=== PATIENT | female | born 1970 | race Caucasian/White ===

== ENCOUNTER 2017-01-18 16:49 | Emergency (ER) | payer SELFPAY ==
--- NOTE | 2017-01-18 17:33 | ED Physician Documentation ---
Upper Respiratory Symptoms - HISTORIAN Historian: patient - HPI Stated Complaint: Fever/Chills/Decrease Appetite Chief Complaint: Cough/ Upper Respiratory Additional Information: ears hurt but not as bad as prev ear infections, fever fatigue, little dysuria. no appetite. Onset: days ago Duration: constant Context: denies: recent foreign travel, insect bite(s), tick(s), recent chemotherapy, multiple patients Severity: mild Associated Symptoms: fever, chills, earache Worsened by Deep Breath: No Further Comments: no - ROS CONST/EYES: denies: weakness, eye redness, eye itching CVS/RESP: none LYMPH: denies: leg swelling GI/: problems urinating (hurts a little) NEURO/PSYCH: denies: fainting MS/SKIN: muscle aches - PAST HX Lung Disease: denies: pneumonia PE Risk Factors: hypertension Other History: CHF, diabetes Type 2, hypertension Immunizations: UTD Allergies/Adverse Reactions: Allergies Allergy/AdvReac Type Severity Reaction Status Date / Time No Known Allergies Allergy Verified 05/28/15 13:29 Home Medications: Ambulatory Orders Medication Instructions Recorded Furosemide [Furosemide] 1 tab PO DAILY 11/30/13 Lisinopril/Hctz 20-12.5 1 tab PO DAILY 11/30/13 [Zestoretic 20-12.5] Pravastatin Sodium [Pravastatin 1 tab PO DAILY 11/30/13 Sodium] Metformin HCl ER [Glucophage XR] 1,000 mg PO BID 03/21/14 Glimepiride [Amaryl] 4 mg PO DAILY 01/18/17 - SOCIAL HX Smoking History: non-smoker Alcohol Use: none Drug Use: none - FAMILY HX Family History: none - VITAL SIGNS Vital Signs: Vital Signs Temp Pulse Resp BP Pulse Ox 99.4 F 88 18 115/70 95 01/18/17 16:50 01/18/17 17:39 01/18/17 17:39 01/18/17 17:39 01/18/17 17:39 - REVIEWED ASSESSMENTS Nursing Assessment Reviewed: Yes Vitals Reviewed: Yes ED Results Lab/Radiology - Lab Results Lab Results: Lab Results 01/18/17 17:40 Urine Color Yellow (YELLOW) Urine Appearance Cloudy (CLEAR) Urine pH 5.0 (5.0 - 8.0) Ur Specific Crawford 1.025 (1.010-1.030) Urine Protein 3+ mg/dL H mg/dL (NEGATIVE) Urine Ketones Negative mg/dL mg/dL (NEGATIVE) Urine Occult Blood 2+ H (NEGATIVE) Urine Nitrite Negative (NEGATIVE) Urine Bilirubin 1+ H (NEGATIVE) Urine Urobilinogen 0.2 Eu Eu (0.2-1.0) Ur Leukocyte Esterase 3+ H (NEGATIVE) Urine RBC 0-2 (0-2 HPF) Urine WBC 50-99 H (0-5 HPF) Urine WBC Clumps Present H (NEGATIVE) Ur Squamous Epith Cells Few (NEG-FEW) Urine Bacteria Many H (NEGATIVE) Urine Glucose Negative mg/dL mg/dL (NEGATIVE) - Orders Orders: ED Orders Category Date Time Status UA W MICRO [UA W/MICRO IF INDICATED] Routine Lab 01/18/17 17:40 Completed URINE CULTURE Routine Lab 01/18/17 17:40 Received Upper Respiratory Symptoms - EXAM General Appearance: no acute distress, alert EENT: eyes nml inspection, nml ENT inspection, ear nml, nose nml, pharynx nml Neck: normal inspection, supple. No: lymphadenopathy, carotid bruit Respiratory: no resp. distress, breath sounds nml, no pain on inspiration, speaks full sentences. No: wheezes, rales, rhonchi Abdomen: non-tender CVS: reg rate & rhythm, heart sounds normal, equal pulses Skin: color nml, no rash, warm,dry Extremities: non-tender Neuro/Psych: oriented x3, neuro intact, mood/affect nml Discharge Clincal Impression: UTI (urinary tract infection) Qualifiers: Urinary tract infection type: acute cystitis Hematuria presence: without hematuria Qualified Code(s): N30.00 - Acute cystitis without hematuria Clincal Impression: (Ruled Out): UTI (urinary tract infection) due to Enterococcus Referrals: Ingris Bernal, CLINICAL TRIAL DATA MANAGER [Primary Care Provider] - 2 Days Condition: Stable Disposition: 01 HOME, SELF-CARE Decision to Admit: NO Date of Decison to Admit: 01/18/17 Decision Time: 18:16
[2017-01-18 17:45] LABS: APPEARANCE,URINE Cloudy (CLEAR); COLOR,URINE Yellow (YELLOW); OCCULT BLOOD,URINE 2+ (NEGATIVE); UROBILINOGEN URINE 0.2 Eu (0.2-1.0)
[2017-01-18 18:27] VITALS: BP 120/58
== END 2017-01-18 18:25 | disposition home or self-care (01) ==
LOC: ED 16:49
DX: N30.00 Acute cystitis without hematuria (principal)
CPT/HCPCS: 81002; 87086; 87186; 99283

== ENCOUNTER 2018-09-15 19:24 | Observation (INO) | payer SELFPAY ==
[2018-09-15] MEDS ORDERED: NORMAL SALINE 1,000 ML IV.SOLN IV ONE ×2 (20:22→22:55)
[2018-09-15] MEDS ORDERED: INSULIN REGULAR, HUMAN 100 UNIT/ML 10ML VIAL ONE (20:23)
[2018-09-15] MEDS ORDERED: GLIMEPIRIDE 2 MG TABLET PO ONE (22:54)
[2018-09-15] MEDS ORDERED: LISINOPRIL 10 MG TABLET PO ONE (22:54)
[2018-09-15] MEDS ORDERED: CYCLOBENZAPRINE HCL 10 MG TABLET PO ONE (22:54)
[2018-09-15] MEDS ORDERED: hydroCHLOROthiazide 25 MG TABLET PO ONE (22:54)
[2018-09-15] MEDS ORDERED: CIPROFLOXACIN HCL 500 MG TABLET PO ONE (22:54)
[2018-10-05 10:55] LABS: APPEARANCE,URINE CLEAR (CLEAR); COLOR,URINE YELLOW (YELLOW); OCCULT BLOOD,URINE 2+ (NEGATIVE); PH URINE 5.5 (5.0 - 8.0); UROBILINOGEN URINE 0.2 Eu (0.2-1.0)
[2018-10-05 10:56] LABS: eGFR (Non-African) > 60
[2018-10-05 10:58] LABS: BASOPHILS % 1 % (0-2); SEGMENTED NEUTROPHILS % 54 % (39-79)
[2018-10-07 13:46] LABS: eGFR (Non-African) > 60
[2018-10-07 13:47] LABS: BASOPHILS % 0.5 % (0.0-1.5); NEUTROPHILS # 1.9 # k/uL (1.4-7.7)
--- NOTE | 2018-11-07 10:48 | Diagnostic Imaging Report ---
ODILON AMADOR ED [facility] [id number] [facility] [address] [place], [place]. [address] Report Submission Date: Sep 15, 2018 9:20:25 PM CDT Patient Study Name: MITCHEL BHANDARI Date: Sep 15, 2018 8:07:17 PM CDT Modality Type: CT\SR Gender: F Description: CT HEAD W/O : 74 Institution: [facility] Physician: ODILON AMADOR ED CT brain noncontrast CLINICAL HISTORY: SLURRED SPEECH, MEMORY INPAIRMENT (Hx) / SLURRED SPEECH, MEMORY INPAIRMENT (DICOM Hx) TECHNIQUE: 5 mm contiguous axial images of the brain, noncontrast. FINDINGS: There is no evidence of intracranial mass effect, hemorrhage, or acute hydrocephalus. The lateral ventricles are symmetrical and the 4th ventricle is midline without shift. No acute brain parenchymal changes or extra-axial fluid collections are identified. The posterior fossa contents are within normal limits. The calvarium is intact. The visualized sinuses and mastoid air cells are clear. IMPRESSION: No acute intracranial process. Electronically signed on Sep 15, 2018 9:20:25 PM CDT by: Satish MEJÍA
== END 2018-09-16 13:35 | disposition home or self-care (01) ==
LOC: ED 19:24 → SOUTH 20:58
PROVIDERS: ADMIT Physician Assistant Medical; ATTEND Physician Assistant Medical
DX: I10 Essential (primary) hypertension (principal); F41.9 Anxiety disorder, unspecified; Z73.3 Stress, not elsewhere classified
CPT/HCPCS: 36415; 70450; 80053; 81002; 82550; 82553; 84484; 85025; 87086; 93005; 99218; G0378; J1815; J7030; S1016